=== PATIENT | female | born 1955 | race African-American/Black ===

== ENCOUNTER → 2017-08-30 11:52 | Outpatient (CLI) | payer MEDICAID, SELFPAY ==
[2017-08-30 12:19] LABS: Basophils % 0.3 % (0.1-2.0); Eosinophils # 0.1 K/mm3 (0.0-0.4); Eosinophils % 2.9 % (0.1-12.0); Hemoglobin 10.6 g/dL (12.2-16.2); Lymphocytes # 1.6 K/mm3 (0.7-4.5); Lymphocytes % 32.7 K/mm3 (10-50); Mean Corpuscular HGB Conc 31.1 g/dL (31.8-35.4); Mean Corpuscular Hemoglobin 26.2 pg (27.0-31.2); Mean Corpuscular Volume 84.2 fl (81-99); Mean Platelet Volume 9.1 fl (7.4-10.4); Monocytes # 0.2 K/mm3 (0.1-1.0); Monocytes % 4.8 % (1.7-9.3); Neutrophils # 2.9 K/mm3 (1.8-7.8); Neutrophils % 59.2 % (37.0-80.0); Platelet Count 208 K/mm3 (142-424); Red Blood Count 4.03 M/mm3 (4.20-5.40); Red Cell Distribution Width 17.1 % (11.5-17.5)
[2017-08-30 14:14] LABS: Alanine Aminotransferase 20 U/L (12-78); Albumin Level 3.2 gm/dL (3.4-5.0); Albumin/Globulin Ratio 0.7 (1.1-1.8); Alkaline Phosphatase 89 U/L (46-116); Anion Gap 9.2 mEq/L (5-15); Aspartate Amino Transferase 11 U/L (15-37); Bilirubin,Total 0.2 mg/dL (0.2-1.0); Blood Urea Nitrogen 14 mg/dL (7-18); Calcium 8.9 mg/dL (8.5-10.1); Carbon Dioxide 33 mmol/L (21.0-32.0); Chloride 102 mmol/L (98-107); Chol/HDL Ratio 1.7 (1-3.5); Cholesterol 150 mg/dL (140-200); Estimated Glomerular Filt Rate 73 ml/min (>60); GFR (African American) 89 ML/MIN (>60); Globulin 4.5 gm/dl (1.3-3.2); Glucose 107 mg/dL (74-106); HDL Cholesterol 90 mg/dL (29-89); LDL Cholesterol 38 mg/dL (0-130); Potassium 4.2 mmoL/L (3.5-5.1); Sodium 140 mmol/L (136-145); Total Protein,Serum 7.7 gm/dL (6.4-8.2); Triglycerides 112 mg/dL (30-200); VLDL Cholesterol 22 mg/dL (0-40)
[2017-09-03 12:13] LABS: Vitamin B12 1837 pg/mL (232-1245)
== END ==
PROVIDERS: PCP Internal Medicine Adolescent Medicine; Visit Provider Internal Medicine Adolescent Medicine
DX: E53.8 Deficiency of other specified B group vitamins (principal); E78.5 Hyperlipidemia, unspecified; I10 Essential (primary) hypertension
CPT/HCPCS: 36415; 80053; 80061; 82607; 85025

== ENCOUNTER → 2017-09-03 09:29 | Outpatient (CLI) | payer MEDICAID, SELFPAY ==
[2017-09-03 11:42] LABS: Digoxin 0.43 ng/mL (1.15-2.56)
[2017-09-03 11:47] LABS: Alanine Aminotransferase 20 U/L (12-78); Albumin Level 3.2 gm/dL (3.4-5.0); Albumin/Globulin Ratio 0.7 (1.1-1.8); Alkaline Phosphatase 78 U/L (46-116); Anion Gap 11.9 mEq/L (5-15); Aspartate Amino Transferase 12 U/L (15-37); Bilirubin,Total 0.3 mg/dL (0.2-1.0); Blood Urea Nitrogen 13 mg/dL (7-18); Calcium 8.7 mg/dL (8.5-10.1); Carbon Dioxide 30 mmol/L (21.0-32.0); Chloride 104 mmol/L (98-107); Chol/HDL Ratio 1.6 (1-3.5); Cholesterol 155 mg/dL (140-200); Creatinine,Serum 0.74 mg/dL (0.55-1.02); Estimated Glomerular Filt Rate 80 ml/min (>60); GFR (African American) 97 ML/MIN (>60); Globulin 4.4 gm/dl (1.3-3.2); Glucose 82 mg/dL (74-106); HDL Cholesterol 94 mg/dL (29-89); LDL Cholesterol 43 mg/dL (0-130); Potassium 3.9 mmoL/L (3.5-5.1); Sodium 142 mmol/L (136-145); Total Protein,Serum 7.6 gm/dL (6.4-8.2); Triglycerides 89 mg/dL (30-200); VLDL Cholesterol 18 mg/dL (0-40)
[2017-09-04 19:07] LABS: Vitamin B12 1419 pg/mL (232-1245)
== END ==
PROVIDERS: PCP Internal Medicine Adolescent Medicine; Visit Provider Nurse Practitioner Family
DX: E53.8 Deficiency of other specified B group vitamins (principal); E78.5 Hyperlipidemia, unspecified; I10 Essential (primary) hypertension; I49.8 Other specified cardiac arrhythmias; Z00.00 Encounter for general adult medical examination without abnormal findings
CPT/HCPCS: 36415; 80053; 80061; 80162; 82607

== ENCOUNTER → 2017-10-12 10:54 | Outpatient (CLI) | payer MEDICAID, SELFPAY ==
[2017-10-12 11:23] LABS: Basophils % 0.4 % (0.1-2.0); Eosinophils # 0.1 K/mm3 (0.0-0.4); Eosinophils % 2.6 % (0.1-12.0); Hematocrit 35.8 % (37.0-47.0); Hemoglobin 11.4 g/dL (12.2-16.2); Lymphocytes # 1.6 K/mm3 (0.7-4.5); Lymphocytes % 34.2 K/mm3 (10-50); Mean Corpuscular HGB Conc 31.8 g/dL (31.8-35.4); Mean Corpuscular Hemoglobin 26.8 pg (27.0-31.2); Mean Corpuscular Volume 84.3 fl (81-99); Mean Platelet Volume 9.2 fl (7.4-10.4); Monocytes # 0.2 K/mm3 (0.1-1.0); Monocytes % 4.8 % (1.7-9.3); Neutrophils # 2.7 K/mm3 (1.8-7.8); Neutrophils % 57.9 % (37.0-80.0); Platelet Count 209 K/mm3 (142-424); Red Blood Count 4.24 M/mm3 (4.20-5.40); Red Cell Distribution Width 16.5 % (11.5-17.5); White Blood Count 4.6 K/mm3 (4.8-10.8)
== END ==
PROVIDERS: Visit Provider Internal Medicine Adolescent Medicine
DX: Z01.818 Encounter for other preprocedural examination (principal)
CPT/HCPCS: 36415; 85025

== ENCOUNTER → 2017-11-12 10:55 | Outpatient (CLI) | payer MEDICAID, SELFPAY ==
--- NOTE | 2017-11-12 10:59 | FL_ITS ---
[place] upper GI small bowel Ordering Physician: Zack Louis MD Patient Age: 62 years: Female HISTORY: ITS.REASON: anemia TECHNIQUE: Single contrast UGI followed by small bowel follow-through . Total fluoroscopy time 1 minute 41 seconds COMPARISON :None FINDINGS KUB Well Driller film was performed due to recent BE. This verifies that the contrast from recent barium enema has cleared adequately. Only some minimal contrast remains within the appendix at right RLQ as well as a few contrast filled diverticuli sigmoid colon. Moderate stool throughout colon.Fairly large girth patient which made positioning somewhat difficult UGI Following ingestion of barium the esophagus appears normal satisfactory. Mild tapering at the distal esophagus did relax. Overall GE junction satisfactory. Scant GE reflux observed Stomach, pylorus and duodenum bulb appear satisfactory. No ulcer... Normal peristalsis observed. The upper normal rugal folds of the stomach appear normal and subsequent images. Duodenal loop appears satisfactory. Post bulbar region appear mildly irritable initially with upper normal rugal glands but I believe overall within normal limits. No significant findings here. Small bowel follow-through appears satisfactory. No filling defects. The terminal ileum unremarkable. Normal caliber. IMPRESSION: 1. UGI no significant findings Esophagus, stomach, pylorus, and duodenum satisfactory. No ulceration is nor filling defect, nor lesion identified to account for the patient's anemia Only questioned very minor irritability post bulbar region with slight generous Jarrell's glands here.. Likely normal but Could reflect some minor peptic irritation features. Overall Unimpressive. 2. Small bowel follow-through unremarkable. WNL
== END ==
PROVIDERS: Family Provider Internal Medicine Adolescent Medicine; PCP Internal Medicine Adolescent Medicine; Visit Provider Surgery
DX: D64.9 Anemia, unspecified (principal)
CPT/HCPCS: 74245

== ENCOUNTER → 2018-05-12 10:26 | Outpatient (CLI) | payer MEDICAID, SELFPAY ==
--- NOTE | 2018-05-12 10:27 | MM_ITS ---
MM Dig screening mamm BI w/CAD CAD Screening COMPARISON: Digital mammograms 02/12/2017 and 02/10/2016 INDICATION: There is no personal or family history of breast cancer TECHNIQUE: Standard CC and MLO images were obtained. R2 CAD reviewed. FINDINGS: The breasts are composed primarily of fat with minimal scattered fibroglandular densities throughout each breast. There is a biopsy clip right breast and there is a benign-appearing calcification right breast. There is possible change in subtle asymmetric density upper outer quadrant left breast. There is an associated benign-appearing calcification with this density. Recommend patient return for spot compression views in MLO and CC projection, ultrasound may be necessary as well. There are no suspicious microcalcifications. IMPRESSION: Fibrofatty parenchyma with questionable developing asymmetric density left breast BI-RADS Category: 0 Need Additional Imaging Evaluation RECOMMENDED FOLLOW-UP: IMM - IMMEDIATE FOLLOW-UP RECOMMENDED (A letter has been sent to the patient regarding results of the study.)
== END ==
PROVIDERS: PCP Internal Medicine Adolescent Medicine; Visit Provider Obstetrics & Gynecology
DX: Z12.31 Encounter for screening mammogram for malignant neoplasm of breast (principal)
CPT/HCPCS: 77067

== ENCOUNTER → 2018-05-23 14:23 | Outpatient (CLI) | payer MEDICAID, SELFPAY ==
--- NOTE | 2018-05-23 14:25 | US_ITS ---
US breast LT complete COMPARISON: Additional views left mammogram same date HISTORY: Possible developing asymmetric density TECHNIQUE: Targeted ultrasound FINDINGS: Scanning was was performed in all 4 quadrants of breast showing rather homogeneous echogenicity consistent with fatty type breast parenchyma. There is no suspicious cystic or solid lesion seen. There are no findings to suggest architectural distortion. IMPRESSION: Negative ultrasound left breast recommend the patient continue with yearly screening mammography
--- NOTE | 2018-05-23 14:25 | MM_ITS ---
MM Dig mamm DX unilat LT CAD COMPARISON: Screening mammograms 05/12/2018 INDICATION: Additional views for possible developing asymmetric density TECHNIQUE: Spot compression CC and MLO views FINDINGS: The questionable developing asymmetric density appears to compress out no persistent abnormality seen. Again noted is a tiny benign-appearing calcification. Ultrasound performed same date showed no suspicious cystic or solid lesion at this location. IMPRESSION: Negative problem-solving views and negative ultrasound BI-RADS Category: 1 Negative RECOMMENDED FOLLOW-UP: 1YR - 1 YEAR FOLLOW-UP (A letter has been sent to the patient regarding results of the study.)
== END ==
PROVIDERS: PCP Internal Medicine Adolescent Medicine; Visit Provider Obstetrics & Gynecology
DX: R92.8 Other abnormal and inconclusive findings on diagnostic imaging of breast (principal)
CPT/HCPCS: 76641; 77065

== ENCOUNTER → 2019-06-05 15:16 | Outpatient (CLI) | payer OTHER, SELFPAY ==
--- NOTE | 2019-06-05 15:18 | MM_ITS ---
PROCEDURE: MM DIG SCREENING MAMM BI W/CAD Patient Age:64Y CLINICAL INDICATION: screening COMPARISON: [facility] DIG MAMM-SCREEN NATASHA from 01/29/2014 [facility] DIG MAMM-SCREEN NATASHA from 02/06/2015 [facility] DIG MAMM-SCREEN NATASHA from 02/10/2016 [facility] DIG MAMM-SCREEN NATASHA W/CAD from 02/12/2017 [facility] MM Dig screening mamm BI w/CAD from 05/12/2018 [facility] MM Dig mamm DX unilat LT CAD from 05/23/2018 TECHNIQUE: Standard CC and MLO images were obtained. R2 CAD reviewed. Additional nipple profile CC and MLO 0 views bilateral FINDINGS: Minimal residual fibroglandular elements with fairlylow-density breast. No new areas of significant concern. No dominant or suspicious mass. No suspicious calcifications... Stable architecture Right breast: No new areas of significant concern on right.. Small unimpressive areas minor asymmetry or minor focal density appear stable. Small metallic marker from previous stereotactic biopsy upper outer quadrant right breast again noted Left breast: No new areas of significant concern on right.. Small unimpressive areas minor asymmetry or minor focal density appear stable a dating back to at least 2015 no new areas of significant concern either breast. Bilateral follow-up 1 year adequate IMPRESSION: Stable bilateral mammogram. No new areas of significant concern. Bilateral follow-up 1 year recommended. BI-RAD Category: 2 Benign Finding(s) FOLLOW-UP: 1YR 1 Year Follow-up (A letter has been sent to the patient regarding results of the study.) Dictated by: Winston Roth MD 06/08/2019 09:00 Electronically signed by Winston Roth MD in [place] 06/08/2019 09:00
== END ==
PROVIDERS: PCP Internal Medicine Adolescent Medicine; Visit Provider Obstetrics & Gynecology
DX: Z12.31 Encounter for screening mammogram for malignant neoplasm of breast (principal)
CPT/HCPCS: 77067

== ENCOUNTER → 2020-02-07 10:34 | Outpatient (CLI) | payer OTHER, SELFPAY ==
[2020-02-07 11:02] LABS: Hematocrit 35.6 % (37.0-47.0); Hemoglobin 11.3 g/dL (12.2-16.2)
== END ==
PROVIDERS: Visit Provider Surgery
DX: D64.9 Anemia, unspecified (principal)
CPT/HCPCS: 36415; 85014; 85018

== ENCOUNTER → 2020-02-14 09:47 | Outpatient (CLI) | payer OTHER, SELFPAY ==
--- NOTE | 2020-02-14 09:47 | FL_ITS ---
PROCEDURE: FL UPPER GI SMALL BOWEL CLINICAL INDICATION: Anemia COMPARISON: 11/12/2017. TECHNIQUE: FLUOROSCOPY TIME : 3 minutes 32 seconds. Multiple digital fluoroscopic and spot images were obtained following oral ingestion of effervescent crystals and thick/thin liquid barium contrast. FINDINGS: Upper GI: There is normal swallowing mechanism and esophageal peristalsis for the patient's age is demonstrated. There is no narrowing or stricture seen in the esophagus. Mild tapering of the distal esophagus is evident on initial imaging, which did relaxed on subsequent imaging. The gastroesophageal junction is normally positioned. A small gastroesophageal reflux was seen. The stomach is normal in course with normal mucosal pattern. There is no evidence of ulceration or other deformity noted within the stomach. The duodenal bulb and duodenal loop is unremarkable. Small bowel series: Small intestinal series was performed, demonstrated normal contrast transit time. The outlined jejunal and ileal mucosa are normal in appearance. There is no evidence of displacement or dilatation of the intestinal loops. No significant gastric retention is demonstrated. IMPRESSION: A small gastroesophageal reflux was seen, otherwise unremarkableupper GI and small bowel follow-through. Dictated by: Jasper Pollack 02/14/2020 18:07 Electronically signed by Jasper Pollack in [place] 02/14/2020 18:07
== END ==
PROVIDERS: PCP Internal Medicine Adolescent Medicine; Visit Provider Surgery
DX: K57.90 Diverticulosis of intestine, part unspecified, without perforation or abscess without bleeding (principal)
CPT/HCPCS: 74246; 74248

== ENCOUNTER → 2020-06-07 08:57 | Outpatient (CLI) | payer OTHER, SELFPAY ==
--- NOTE | 2020-06-07 08:57 | MM_ITS ---
PROCEDURE: MM DIG SCREENING MAMM BI W/CAD Digital Breast Tomosynthesis Included CLINICAL INDICATION: Routine Screening Mammogram There is no personal or family history of breast cancer. There has been a previous biopsy right breast for benign disease. COMPARISON: MG [facility] MM Dig screening mamm BI w/CAD from 05/12/2018 MG [facility] MM Dig mamm DX unilat LT CAD from 05/23/2018 MG MM DIG SCREENING MAMM BI W/CAD from 06/05/2019 TECHNIQUE: Standard CC and MLO images and 3D Tomosynthesis was obtained. R2 CAD reviewed. FINDINGS: Diffuse scattered fibroglandular densities are seen throughout both breasts. There is a biopsy clip central portion right breast. There are couple of benign-appearing microcalcifications in each breast. There is a small asymmetric density just deep to the nipple right breast. It was seen on the previous exam but may have slightly increased in size and recommend the patient return for spot compression views and ultrasound for additional evaluation. There are no suspicious microcalcifications in either breast. IMPRESSION: Fibrofatty parenchyma with possible change in asymmetric density right breast BI-RAD Category: 0 Need Additional Imaging Evaluation FOLLOW-UP: IMM Immediate Follow-up Recommended (A letter has been sent to the patient regarding results of the study.) Dictated by: Dr. Hector Johnson MD 06/15/2020 08:28 Dr. Hector Johnson MD in [place] 06/15/2020 08:28
== END ==
PROVIDERS: PCP Internal Medicine Adolescent Medicine; Visit Provider Obstetrics & Gynecology
DX: Z12.31 Encounter for screening mammogram for malignant neoplasm of breast (principal)
CPT/HCPCS: 77063; 77067

== ENCOUNTER → 2020-06-12 09:19 | Outpatient (CLI) | payer OTHER, SELFPAY ==
[2020-06-12 09:56] LABS: Basophils % 0.4 % (0.1-2.0); Eosinophils # 0.2 K/mm3 (0.0-0.4); Eosinophils % 3.1 % (0.1-12.0); Hematocrit 37.8 % (37.0-47.0); Lymphocytes # 1.6 K/mm3 (0.7-4.5); Lymphocytes % 27.4 % (10-50); Mean Corpuscular HGB Conc 31.8 g/dL (31.8-35.4); Mean Corpuscular Hemoglobin 26.8 pg (27.0-31.2); Mean Corpuscular Volume 84.4 fl (81-99); Mean Platelet Volume 10.6 fl (7.4-10.4); Monocytes # 0.3 K/mm3 (0.1-1.0); Monocytes % 4.6 % (1.7-9.3); Neutrophils # 3.7 K/mm3 (1.8-7.8); Neutrophils % 64.5 % (37.0-80.0); Platelet Count 248 K/mm3 (142-424); Red Blood Count 4.48 M/mm3 (4.20-5.40); Red Cell Distribution Width 18.6 % (11.5-17.5); White Blood Count 5.7 K/mm3 (4.8-10.8)
[2020-06-12 11:04] LABS: Chloride 98 mmol/L (98-107); Potassium 4.7 mmoL/L (3.5-5.1); Sodium 140 mmol/L (136-145)
[2020-06-12 11:06] LABS: Alanine Aminotransferase 18 U/L (12-78); Aspartate Amino Transferase 24 U/L (14-36); Blood Urea Nitrogen 18 mg/dl (7-17); Estimated Glomerular Filt Rate 63 ml/min (>60); GFR (African American) 77 ML/MIN (>60)
[2020-06-12 11:07] LABS: Albumin Level 4.1 g/dl (3.5-5.0); Alkaline Phosphatase 131 U/L (38-126); Anion Gap 13.7 mEq/L (5-15); Bilirubin,Total 0.5 mg/dl (0.2-1.3); Calcium 9.9 mg/dl (8.4-10.2); Carbon Dioxide 33 mmol/L (22.0-30.0); Chol/HDL Ratio 1.9 (1-3.5); Cholesterol 163 mg/dl (140-200); Globulin 4.2 g/dL (1.3-3.2); Glucose 105 mg/dl (74-100); HDL Cholesterol 84 mg/dl (40-60); Total Protein,Serum 8.3 g/dl (6.3-8.2); Triglycerides 79 mg/dl (30-150); VLDL Cholesterol 16 mg/dL (0-40)
[2020-06-12 11:16] LABS: NT Pro Brain Natriuretic Pep. 116 pg/mL (0-125)
[2020-06-12 11:18] LABS: Direct LDL Cholesterol 46.86 mg/dL (100-129)
[2020-06-12 11:44] LABS: Hemoglobin A1C 5.6 % (4.0-6.0)
== END ==
PROVIDERS: Visit Provider Internal Medicine Adolescent Medicine
DX: I50.30 Unspecified diastolic (congestive) heart failure (principal); E78.5 Hyperlipidemia, unspecified; Z86.39 Personal history of other endocrine, nutritional and metabolic disease
CPT/HCPCS: 36415; 80053; 80061; 83036; 83880; 85025

== ENCOUNTER → 2020-06-28 09:45 | Outpatient (CLI) | payer OTHER, SELFPAY ==
--- NOTE | 2020-06-28 09:45 | MM_ITS ---
PROCEDURE: MM DIG MAMM DX UNILAT RT CAD Digital Breast Tomosynthesis Included CLINICAL INDICATION: Spot compressions COMPARISON: MG DXLT MM Dig mamm DX unilat LT CAD from 05/23/2018 MG MM DIG SCREENING MAMM BI W/CAD from 06/05/2019 MG MM DIG SCREENING MAMM BI W/CAD from 06/07/2020 TECHNIQUE: Standard CC and MLO images and 3D Tomosynthesis was obtained. R2 CAD reviewed. FINDINGS: Spot compression views and 90 degree lateral views show that the questionable lesion appears to press out the additional views. There is no architectural distortion and no suspicious microcalcifications. I believe ultrasound is not necessary at this time. IMPRESSION: Negative problem solving views recommend the patient continue with yearly screening mammography BI-RAD Category: 1 Negative FOLLOW-UP: 1YR 1 Year Follow-up (A letter has been sent to the patient regarding results of the study.) Dictated by: Dr. Hector Johnson MD 06/28/2020 10:38 Dr. Hector Johnson MD in [place] 06/28/2020 10:38
== END ==
PROVIDERS: PCP Internal Medicine Adolescent Medicine; Visit Provider Obstetrics & Gynecology
DX: R92.8 Other abnormal and inconclusive findings on diagnostic imaging of breast (principal)
CPT/HCPCS: 77061; 77065; G0279

== ENCOUNTER → 2020-10-10 09:46 | Outpatient (CLI) | payer OTHER, SELFPAY ==
[2020-10-10 10:10] LABS: Basophils % 0.5 % (0.1-2.0); Eosinophils # 0.2 K/mm3 (0.0-0.4); Eosinophils % 2.6 % (0.1-12.0); Hematocrit 35.8 % (37.0-47.0); Hemoglobin 11.5 g/dL (12.2-16.2); Lymphocytes # 1.5 K/mm3 (0.7-4.5); Lymphocytes % 25.1 % (10-50); Mean Corpuscular HGB Conc 32.1 g/dL (31.8-35.4); Mean Corpuscular Hemoglobin 26.7 pg (27.0-31.2); Mean Corpuscular Volume 83.1 fl (81-99); Mean Platelet Volume 10.2 fl (7.4-10.4); Monocytes # 0.3 K/mm3 (0.1-1.0); Monocytes % 4.3 % (1.7-9.3); Neutrophils # 3.9 K/mm3 (1.8-7.8); Neutrophils % 67.4 % (37.0-80.0); Platelet Count 204 K/mm3 (142-424); Red Blood Count 4.31 M/mm3 (4.20-5.40); Red Cell Distribution Width 17.7 % (11.5-17.5); White Blood Count 5.8 K/mm3 (4.8-10.8)
[2020-10-10 10:44] LABS: Chloride 103 mmol/L (98-107); Potassium 4.2 mmoL/L (3.5-5.1); Sodium 139 mmol/L (136-145)
[2020-10-10 10:46] LABS: Iron 41 ug/dL (37-170)
[2020-10-10 10:46] LABS: Alanine Aminotransferase 22 U/L (12-78); Alkaline Phosphatase 130 U/L (38-126); Aspartate Amino Transferase 22 U/L (14-36); Bilirubin,Total 0.6 mg/dl (0.2-1.3); Blood Urea Nitrogen 15 mg/dl (7-17); Estimated Glomerular Filt Rate 72 ml/min (>60); GFR (African American) 88 ML/MIN (>60)
[2020-10-10 10:47] LABS: Albumin Level 4.1 g/dl (3.5-5.0); Anion Gap 10.2 mEq/L (5-15); Calcium 9.6 mg/dl (8.4-10.2); Carbon Dioxide 30 mmol/L (22.0-30.0); Chol/HDL Ratio 1.9 (1-3.5); Cholesterol 152 mg/dl (140-200); Glucose 104 mg/dl (74-100); HDL Cholesterol 80 mg/dl (40-60); Total Protein,Serum 8.1 g/dl (6.3-8.2); Triglycerides 88 mg/dl (30-150); VLDL Cholesterol 18 mg/dL (0-40)
[2020-10-10 10:55] LABS: Total Iron Binding Capacity 261 ug/dL (265-497)
[2020-10-10 11:17] LABS: Thyroid Stimulating Hormone 1.53 uIU/mL (0.465-4.68)
[2020-10-10 11:21] LABS: Ferritin 62.5 ng/ml (11.1-264)
[2020-10-10 11:52] LABS: Vitamin B12 674 pg/mL (239-931)
== END ==
PROVIDERS: Internal Medicine; Visit Provider Internal Medicine Adolescent Medicine
DX: I49.8 Other specified cardiac arrhythmias (principal); E78.5 Hyperlipidemia, unspecified; D50.9 Iron deficiency anemia, unspecified
CPT/HCPCS: 36415; 80053; 80061; 80162; 82607; 82728; 82746; 83540; 83550; 84443; 85025

== ENCOUNTER → 2021-04-10 10:44 | Outpatient (CLI) | payer OTHER, SELFPAY ==
[2021-04-10 11:24] LABS: Basophils % 0.6 % (0.1-2.0); Eosinophils # 0.1 K/mm3 (0.0-0.4); Eosinophils % 2.3 % (0.1-12.0); Hematocrit 38.5 % (37.0-47.0); Hemoglobin 11.9 g/dL (12.2-16.2); Lymphocytes # 1.4 K/mm3 (0.7-4.5); Lymphocytes % 24.1 % (10-50); Mean Corpuscular HGB Conc 30.9 g/dL (31.8-35.4); Mean Corpuscular Hemoglobin 27.3 pg (27.0-31.2); Mean Corpuscular Volume 88.3 fl (81-99); Mean Platelet Volume 9.2 fl (7.4-10.4); Monocytes # 0.3 K/mm3 (0.1-1.0); Monocytes % 4.9 % (1.7-9.3); Neutrophils % 68.1 % (37.0-80.0); Platelet Count 244 K/mm3 (142-424); Red Blood Count 4.36 M/mm3 (4.20-5.40); Red Cell Distribution Width 17.7 % (11.5-17.5); White Blood Count 5.9 K/mm3 (4.8-10.8)
[2021-04-10 13:09] LABS: Alanine Aminotransferase 18 U/L (12-78); Albumin Level 4.1 g/dl (3.5-5.0); Albumin/Globulin Ratio 1.1 (1.1-1.8); Alkaline Phosphatase 133 U/L (38-126); Anion Gap 12.5 mEq/L (5-15); Aspartate Amino Transferase 23 U/L (14-36); Bilirubin,Total 0.5 mg/dl (0.2-1.3); Blood Urea Nitrogen 17 mg/dl (7-17); Calcium 9.6 mg/dl (8.4-10.2); Carbon Dioxide 33 mmol/L (22.0-30.0); Chloride 101 mmol/L (98-107); Chol/HDL Ratio 1.8 (1-3.5); Cholesterol 163 mg/dl (140-200); Estimated Glomerular Filt Rate 72 ml/min (>60); GFR (African American) 87 ML/MIN (>60); Globulin 3.6 g/dL (1.3-3.2); Glucose 94 mg/dl (74-100); HDL Cholesterol 90 mg/dl (40-60); Potassium 4.5 mmoL/L (3.5-5.1); Sodium 142 mmol/L (136-145); Total Protein,Serum 7.7 g/dl (6.3-8.2); Triglycerides 79 mg/dl (30-150); VLDL Cholesterol 16 mg/dL (0-40)
[2021-04-10 13:20] LABS: Direct LDL Cholesterol 51.49 mg/dL (100-129)
== END ==
PROVIDERS: Visit Provider Internal Medicine Adolescent Medicine
DX: I50.30 Unspecified diastolic (congestive) heart failure (principal); E78.5 Hyperlipidemia, unspecified; Z86.39 Personal history of other endocrine, nutritional and metabolic disease
CPT/HCPCS: 36415; 80053; 80061; 80162; 83036; 85025

== ENCOUNTER → 2021-06-16 08:58 | Outpatient (CLI) | payer OTHER, SELFPAY ==
--- NOTE | 2021-06-16 08:58 | MM_ITS ---
PROCEDURE INFORMATION: Exam: MG Bilateral Screening 3D Mammography Exam date and time: 06/16/2021 8:58 AM Age: 66 years old Clinical indication: Encounter for screening mammogram for malignant neoplasm of breast TECHNIQUE: Imaging protocol: Bilateral screening tomosynthesis and 2D mammography including computer-aided detection (CAD) when performed. COMPARISON: 1. MG MM DIG MAMM DX UNILAT RT CAD 06/28/2020 10:16 AM 2. MG MM DIG SCREENING MAMM BI W/CAD 06/07/2020 9:07 AM FINDINGS: MAMMOGRAPHY: Breast composition: The breast tissue is composed of scattered areas of fibroglandular density. Mass: None. Architectural distortion: None. Calcifications: No suspicious calcifications. Asymmetric density: None. Skin thickening: None. Axillary adenopathy: None. IMPRESSION: No mammographic evidence of malignancy. Annual screening is recommended unless otherwise clinically indicated. ASSESSMENT: BI-RADS Category 1: Negative
== END ==
PROVIDERS: PCP Internal Medicine Adolescent Medicine; Visit Provider Obstetrics & Gynecology
DX: Z12.31 Encounter for screening mammogram for malignant neoplasm of breast (principal)
CPT/HCPCS: 77063; 77067

== ENCOUNTER → 2021-08-18 10:27 | Outpatient (CLI) | payer OTHER, SELFPAY ==
--- NOTE | 2021-08-18 | CA_ITS ---
APPROVED REPORT EXAM: Comprehensive 2D, Doppler, and color-flow Echocardiogram Transmission Mechanic: Brisa Rodriguez CRT Ht: 5 ft 2 in Wt: 278lbs BSA: 2.20 BP: 148/80 mmHg Indications: Congestive Heart Failure, Shortness of Breath, Obesity, Hyperlipidemia, Hypertension/HDD 2D Dimensions LVOT 1.95 cm (M/F) 1.5-2.5 LA Volume 45.80 mL LA Volume Index 20.80 mL/m2 (M/F) 16-34 M-Mode Dimensions RVDd 3.10 cm (0.9-2.6) LA Diam 3.95 cm (1.9-4.0) LVDd 5.11 cm (3.5-5.7) Ao Diam 3.62 cm (2.0-3.7) LVDs 3.55 cm (3.5-5.7) IVSd 1.32 cm (0.6-1.1) PWd 0.69 cm (0.6-1.1) EF (Teich) 57.70% FS 30.50% EDV (Teich) 124.40 mL TAPSE 1.36 (<1.7) ESV (Teich) 52.60 mL LV Diastology E Decel Time 190.00 (160-240 msec) E/A Ratio 2.42 MED E' 6.20 (< 7 cm/sec) MED A' 3.70 cm/s E'/MED E' Ratio 19.50 (>14) LAT E' 11.00 (<10 cm/sec) LAT A' 4.30 cm/s E/LAT E' Ratio 10.99 (>14) Aortic Valve AO Peak GR. 8.10 mmHg Mitral Valve MV E Max Ye. 121.00 (40-130 cm/s) MV A Velocity 50.00 (40-130 cm/s) E/A Ratio 2.42 MV Decel. Time 190.00 (160-240 ms) MV PHT 56.00 ms Pulmonary Valve PV Peak Velocity 163.00 (50-150 cm/s) Tricuspid Valve TR P. Velocity 233.00 cm/s RAP Estimate 10.00 mmHg RVSP 31.70 mmHg Left Ventricle Left atrium is mildly enlarged, left ventricle is normal size, mild concentric left ventricular hypertrophy, visually estimated ejection fraction 50% with no obvious regional wall motion abnormality, diastolic parameters are inconclusive. Right Ventricle Right atrium and right ventricle are mildly enlarged with normal contractility. Aortic Valve Aortic valve is minimally thickened and fibrosed, there is no aortic stenosis or aortic insufficiency. Mitral Valve Mitral valve is grossly normal, there is trace mitral regurgitation. Tricuspid Valve Tricuspid grossly normal, there is trace tricuspid regurgitation, tricuspid regurgitation jet velocity is inadequate for calculation of the right ventricular systolic pressure. Pulmonic Valve Pulmonic valve is poorly visualized. Great Vessels Aortic root is normal size. Inferior vena cava is poorly visualized. Pericardium No significant pericardial effusion noted. Conclusion 1. Mild biatrial enlargement, normal left ventricular size, visually estimated ejection fraction 50% with no obvious regional wall motion abnormality, diastolic parameters are inconclusive. 2. Mildly enlarged right ventricle with normal contractility. 3. Trace mitral and tricuspid regurgitation. 4. No significant pericardial effusion noted. 5. Inferior vena cava is poorly visualized. Electronically signed by : Miguel Ángel Devine MD 08/18/2021 21:29:51
== END ==
PROVIDERS: PCP Internal Medicine Adolescent Medicine; Visit Provider Internal Medicine Adolescent Medicine
DX: I48.91 Unspecified atrial fibrillation (principal); I50.30 Unspecified diastolic (congestive) heart failure
CPT/HCPCS: 93306

== ENCOUNTER → 2022-04-03 09:01 | Outpatient (CLI) | payer OTHER, SELFPAY ==
--- NOTE | 2022-04-03 09:05 | XR_ITS ---
FINAL REPORT TECHNIQUE: Bone mineral density was calculated of the lumbar spine and hip. CLINICAL HISTORY: . POST MENOPAUSAL SCREENING FINDINGS: DEXA BONE DENSITY AXIAL SKELETON Using L1-4, the bone mineral density of the spine is 0.959 g/cm2, corresponding to T-score of -0.8. Using the left hip, the bone mineral density of the femoral neck is 0.788 g/cm2, corresponding to a T-score of -0.6. NOTE: T-score: Standard deviation compared with peak bone mass of young adult mean. *Following the recommendations of the International Society of Bone densitometry, classification of hip BMD is based on the lower of two T-scores; total hip or femoral neck. IMPRESSION: Normal bone mineral density of the lumbar spine and hip. Reviewed, Interpreted and Dictated by Robby Hou III, MD Transcribed by Becky Diego Authenticated and [facility]
== END ==
PROVIDERS: PCP Internal Medicine Adolescent Medicine; Visit Provider Internal Medicine Adolescent Medicine
DX: Z78.0 Asymptomatic menopausal state (principal)
CPT/HCPCS: 77080

== ENCOUNTER → 2022-06-22 13:13 | Outpatient (CLI) | payer MEDICARE, OTHER, SELFPAY ==
--- NOTE | 2022-06-22 13:14 | MM_ITS ---
PROCEDURE INFORMATION: Exam: MG Bilateral Screening 3D Mammography Exam date and time: 06/22/2022 1:12 PM Age: 67 years old Clinical indication: Screening examination TECHNIQUE: Imaging protocol: Bilateral Screening tomosynthesis and 2D mammography including computer-aided detection (CAD) when performed. COMPARISON: 1. MG MM DIG SCREENING MAMM BI W/CAD 06/16/2021 9:01 AM 2. MG MM DIG MAMM DX UNILAT RT CAD 06/28/2020 10:16 AM FINDINGS: MAMMOGRAPHY: Breast composition: There are scattered areas of fibroglandular density. Mass: None. Architectural distortion: None. Calcifications: No suspicious calcifications. Asymmetric density: None. Skin thickening: None. Axillary adenopathy: None. IMPRESSION: No mammographic evidence of malignancy. Annual screening is recommended unless otherwise clinically indicated. ASSESSMENT: BI-RADS Category 1: Negative
== END ==
PROVIDERS: PCP Internal Medicine Adolescent Medicine; Visit Provider Obstetrics & Gynecology
DX: Z12.31 Encounter for screening mammogram for malignant neoplasm of breast (principal)
CPT/HCPCS: 77063; 77067

== ENCOUNTER 2023-06-15 08:49 | Day surgery (SDC) | payer MEDICARE, OTHER, SELFPAY ==
[2023-06-11 08:56] VITALS: BMI 47.2
[2023-06-15] VITALS (7 sets, daily range): BP systolic 117–158; BP diastolic 55–93; PULSE 81–106; RESP 16–18; TEMP 36.1–36.5; O2SAT 92–100
[2023-06-15 10:24] LABS: POC Glucose,Bedside 93 (70-110)
== END 2023-06-15 11:20 | disposition home or self-care (01) ==
PROVIDERS: PCP Internal Medicine Adolescent Medicine; Visit Provider Ophthalmology
PROC: (CPT 66984; principal; 2023-06-15 11:30)
DX: E11.36 Type 2 diabetes mellitus with diabetic cataract (principal); H25.9 Unspecified age-related cataract
CPT/HCPCS: 66984; 82962; V2632

== ENCOUNTER 2023-06-29 09:44 | Day surgery (SDC) | payer MEDICARE, OTHER, SELFPAY ==
[2023-06-29] VITALS (7 sets, daily range): BP systolic 139–167; BP diastolic 67–95; PULSE 78–92; RESP 17–20; TEMP 36.2–36.6; O2SAT 94–100; BMI 46.8
[2023-06-29] MEDS: TETRACAINE 0.5% OPTH SOL 15ML OP ×3 (10:55→11:05)
[2023-06-29] MEDS: CYCLOPENTOLATE 2% OPHTH SOLN 2ML BOTTLE OP ×3 (10:55→11:05)
[2023-06-29] MEDS: PHENYLEPHRINE 2.5% OPHTH SOLN 2ML 0.0500000000000000028 ML OP ×3 (10:55→11:05)
[2023-06-29 11:40] LABS: POC Glucose,Bedside 91 (70-110)
[2023-06-29] MEDS: SODIUM CHLORIDE 0.9% 10ML FLUSH SYRINGE 10 ML IV (12:35)
[2023-06-29] MEDS: MIDAZOLAM 2MG/2ML VIAL 1 MG IV (12:35)
[2023-06-29] MEDS: TIMOLOL 0.5% OPTH SOLN 5ML OP (12:41)
[2023-06-29] MEDS: LIDOCAINE 1% PF 2ML AMPULE 2 ML IJ (12:41)
[2023-06-29] MEDS: TOBRAMYCIN/DEX OPTH SUSP 2.5ML OP (12:42)
== END 2023-06-29 13:05 | disposition home or self-care (01) ==
PROVIDERS: PCP Internal Medicine Adolescent Medicine; Visit Provider Ophthalmology
PROC: (CPT 66984; principal; 2023-06-29 13:00)
DX: E11.36 Type 2 diabetes mellitus with diabetic cataract (principal); H25.9 Unspecified age-related cataract
CPT/HCPCS: 66984; 82962; V2632

== ENCOUNTER 2024-04-27 10:18 | Outpatient (CLI) | payer MEDICARE, OTHER, SELFPAY ==
--- NOTE | 2024-04-27 10:21 | MM_ITS ---
PROCEDURE INFORMATION: Exam: MG Bilateral Screening 3D Mammography Exam date and time: 04/27/2024 10:13 AM Age: 69 years old Clinical indication: Screening examination TECHNIQUE: Imaging protocol: Bilateral Screening tomosynthesis and 2D mammography including computer-aided detection (CAD) when performed. COMPARISON: 1. MG MM DIG SCREENING MAMM BI W/CAD 06/22/2022 1:12 PM 2. MG MM DIG SCREENING MAMM BI W/CAD 06/16/2021 9:01 AM FINDINGS: MAMMOGRAPHY: Breast composition: There are scattered areas of fibroglandular density. Mass: None. Architectural distortion: None. Calcifications: No suspicious calcifications. Asymmetric density: None. Skin thickening: None. Axillary adenopathy: None. IMPRESSION: No mammographic evidence of malignancy. Annual screening is recommended unless otherwise clinically indicated. ASSESSMENT: BI-RADS Category 1: Negative.
== END 2024-04-27 23:59 | disposition home or self-care (01) ==
LOC: RAD 10:19
PROVIDERS: PCP Internal Medicine Adolescent Medicine; Visit Provider Internal Medicine Adolescent Medicine
DX: Z12.31 Encounter for screening mammogram for malignant neoplasm of breast (principal)
CPT/HCPCS: 77063; 77067

== ENCOUNTER 2025-05-24 15:10 | Outpatient (CLI) | payer MEDICARE, OTHER, SELFPAY ==
--- NOTE | 2025-05-24 15:18 | MM_ITS ---
PROCEDURE INFORMATION: Exam: MG Bilateral Screening 3D Mammography Exam date and time: 05/24/2025 3:24 PM Age: 70 years old Clinical indication: Screening examination TECHNIQUE: Imaging protocol: Bilateral Screening tomosynthesis and 2D mammography including computer-aided detection (CAD) when performed. COMPARISON: 1. MG MM DIG SCREENING MAMM BI W/CAD 04/27/2024 10:13 AM 2. MG MM DIG SCREENING MAMM BI W/CAD 06/22/2022 1:12 PM FINDINGS: MAMMOGRAPHY: Breast composition: There are scattered areas of fibroglandular density. Mass: No suspicious masses. Architectural distortion: None. Calcifications: No suspicious calcifications. Asymmetric density: None. Skin thickening: None. Axillary adenopathy: None. IMPRESSION: No mammographic evidence of malignancy. Annual screening is recommended unless otherwise clinically indicated. ASSESSMENT: BI-RADS Category 1: Negative.
== END 2025-05-24 23:59 | disposition home or self-care (01) ==
LOC: RAD 15:11
PROVIDERS: PCP Internal Medicine Adolescent Medicine; Visit Provider Internal Medicine Adolescent Medicine
DX: Z12.31 Encounter for screening mammogram for malignant neoplasm of breast (principal); R92.323 Mammographic fibroglandular density, bilateral breasts
CPT/HCPCS: 77063; 77067